=== PATIENT | female | born 1995 | race American Indian/Alaskan Native ===

== ENCOUNTER 2017-07-01 23:23 | Inpatient (IN) | payer OTHER ==
[2017-07-02] MEDS ORDERED: LACTATED RINGERS 1,000 ML ONE ×2 (00:48→02:27)
[2017-07-02 00:58] LABS: Basophils % (Auto) 2.4 % (0.0-1.8); Eosinophils % (Auto) 1.4 % (0.0-4.3); Hematocrit 31.1 % (30.3-42.9); Hemoglobin 10.3 gm/dl (10.1-14.3); Mean Corpuscular HGB Conc 33 % (30-34); Mean Corpuscular Hemoglobin 30 pg (28-32); Mean Corpuscular Volume 91 fl (79-97); Platelet Count 348 K/mm3 (140-440); Red Blood Count 3.41 M/mm3 (3.65-5.03); Red Cell Distribution Width 15.1 % (13.2-15.2); White Blood Count 12.8 K/mm3 (4.5-11.0)
[2017-07-02 01:39] LABS: HIV-1 Antigen p24 Non React (Non React); HIVR-1/2 Ab Non React (Non React)
[2017-07-02 01:43] LABS: Urine Drugs of Abuse Note Disclamer
[2017-07-02 01:56] LABS: Bilirubin,Urine NEG (Negative); Blood,Urine SM (Negative); Ketones,Urine NEG (Negative); Leukocyte Esterase,Urine LG (Negative); Mucus,Urine 1+ /HPF; Nitrite,Urine NEG (Negative)
--- NOTE | 2017-07-02 02:27 | History and Physical Report ---
History of Present Illness Date of examination: 07/02/17 Date of admission: 07/02/17 02:15 Chief complaint: My water broke History of present illness: Patient is a 22 year old who presents to L&D with no care and 2 previous c-sections, and complaint of rupture of membranes at 7pm. Per the patient she only recently found out that she was . She denies any medication use and states that she has had no known complications with this , but as previuosly stated she has had no care. Patient had ultrasound in triage which showed 2/8 bpp. Past History Past Medical History: other (psychological disorder) Past Surgical History: no surgical history Family/Genetic History: none Social history: single - Obstetrical History : 4 Medications and Allergies Allergies Allergy/AdvReac Type Severity Reaction Status Date / Time amoxicillin Allergy Unknown Unverified 10/28/15 22:16 clarithromycin [From Biaxin] Allergy Unknown Unverified 10/28/15 22:55 Home Medications Medication Instructions Recorded Confirmed Last Taken Type Docusate Sodium [Colace CAP] 100 mg PO BID #60 capsule 10/28/15 Unknown Rx Ferrous Sulfate [Feosol 325 MG tab] 325 mg PO TID #90 tablet 10/28/15 Unknown Rx Ibuprofen [Motrin 800 MG tab] 800 mg PO Q8HR PRN #90 tablet 10/28/15 Unknown Rx oxyCODONE /ACETAMINOPHEN [Percocet 1 tab PO Q6HR PRN #30 tablet 10/28/15 Unknown Rx 5/325 mg] Review of Systems All systems: negative - Vital Signs Vital signs: Vital Signs Pulse BP 77 122/59 07/02/17 00:09 07/02/17 00:09 Temp Pulse Resp BP Pulse Ox 77 122/59 07/02/17 00:09 07/02/17 00:09 - Physical Exam Breasts: Cardiovascular: Regular rate, Normal S1, Normal S2 Lungs: Positive: Clear to auscultation, Normal air movement Abdomen: Positive: normal appearance, soft, normal bowel sounds. Negative: distention, tenderness Vulva: both: normal Vagina: Positive: normal moisture. Negative: discharge Cervix: Negative: lesion, discharge Uterus: Positive: normal size, normal contour Adnexa: both: normal Anus/Rectum: Positive: normal perianal skin, heme negative. Negative: rectal mass, hemorrhoids Extremities: Deep Tendon Reflex Grade: Normal +2 - Obstetrical FHR: auscultation normal Cervical Dilatation: 1 Uterine Contraction Pattern: Regular Results Result Diagrams: 07/02/17 00:25 Abnormal lab results 07/02/17 07/02/17 Range/Units 00:21 00:25 WBC 12.8 H (4.5-11.0) K/mm3 RBC 3.41 L (3.65-5.03) M/mm3 Hopkins % (Auto) 9.5 H (0.0-7.3) % Baso % (Auto) 2.4 H (0.0-1.8) % Hopkins # 1.2 H (0.0-0.8) K/mm3 Baso # 0.3 H (0.0-0.1) K/mm3 Seg Neutrophils # 8.5 H (1.8-7.7) K/mm3 Urine WBC (Auto) 91.0 H (0.0-6.0) /HPF U Epithel Cells (Auto) 19.0 H (0-13.0) /HPF All other labs normal. Assessment and Plan IUp at 38 weeks with rom and no care. Admit for repeat .
[2017-07-02] MEDS ORDERED: BICITRA PO ONE (02:31)
[2017-07-02] MEDS ORDERED: PEPCID IV ONE (02:31)
[2017-07-02] MEDS ORDERED: REGLAN IV ONE (02:31)
[2017-07-02] MEDS ORDERED: LACTATED RINGERS 1,000 ML IV SCH (03:00)
[2017-07-02] MEDS ORDERED: CLEOCIN 600 MG/50 mL 600 MG/50 ML BAG IV NR (03:00)
[2017-07-02] MEDS ORDERED: PITOCin/NS 20 UNIT/1000ML DRIP 20 UNITS/1,000 ML BAG IV SCH ×2 (03:00→07:02)
[2017-07-02] MEDS ORDERED: MORPHINE ONE (03:35)
[2017-07-02] MEDS ORDERED: WATER FOR IRRIG STERILE IR ONE (04:15)
[2017-07-02] MEDS ORDERED: NACL 0.9% IR ONE (04:15)
[2017-07-02] MEDS ORDERED: NEO SYNEPHRINE ONE (04:16)
[2017-07-02] MEDS ORDERED: ZOFRAN ONE (04:47)
[2017-07-02] MEDS ORDERED: TORADOL ONE (05:12)
[2017-07-02] MEDS ORDERED: NARCAN 0.4 MG/1 ML IV PRN ×2 (05:33→07:02)
--- NOTE | 2017-07-02 05:33 | Anesthesia Consultation ---
Anesthesia Consult and Med Hx Date of service: 07/02/17 - Airway Anesthetic Teeth Evaluation: Good ROM Head & Neck: Adequate Mental/Hyoid Distance: Adequate Mallampati Class: Class II Intubation Access Assessment: Probably Good - Pulmonary Exam CTA: Yes - Cardiac Exam Cardiac Exam: RRR - Pre-Operative Health Status ASA Pre-Surgery Classification: ASA2 Proposed Anesthetic Plan: Spinal - Pulmonary Hx Asthma: No COPD: No Hx Pneumonia: No - Cardiovascular System Hx Hypertension: No - Central Nervous System Hx Seizures: No Hx Psychiatric Problems: No - Endocrine Hx Renal Disease: No Hx End Stage Renal Disease: No Hx Hypothyroidism: No Hx Hyperthyroidism: No - Hematic Hx Anemia: No Hx Sickle Cell Disease: No - Other Systems Hx Alcohol Use: No
[2017-07-02] MEDS ORDERED: MORPHINE IV PRN (05:34)
[2017-07-02] MEDS ORDERED: TORADOL IV PRN (05:35)
[2017-07-02] MEDS ORDERED: PERCOCET 5/325 PO PRN (05:35)
[2017-07-02] MEDS ORDERED: SODIUM CHLORIDE FLUSH SYRINGE 10 ML IV NR ×2 (06:00→07:02)
--- NOTE | 2017-07-02 06:02 | Procedure Note ---
OB Delivery Note - Delivery Date of Delivery: 07/02/17 Surgeon: BINH AUGUSTE Estimated blood loss: other (600) - Section Preop diagnosis: repeat , desires sterilization Postop diagnosis: same section procedure: repeat low transverse, bilateral tubal ligation Disposition: PACU Complications: none - A at 1 minute: 8 at 5 minutes: 9 Gender: Female
--- NOTE | 2017-07-02 06:19 | Operative Report ---
Operative Report Operative Report: The operative report for patient Marie Macedo Date of service 07/02/2017 Preoperative diagnosis: Intrauterine at 37-1/7 weeks 2. Previous 2 3. Spontaneous rupture of membranes 4. Lack of care 5. Undesired fertility Postoperative diagnosis: Same Procedure: Repeat low transverse section with bilateral tubal ligation Surgeon: Dr. Marisol Lim Anesthesia: Dr. Reyna ISIDRO EBL: 600 Urine output: [150] IV fluids: 1200 Findings: Viable female in the vertex occiput anterior position. Weight 6 lbs. 5 oz. 2854 g Apgars 9 and 9]. Otherwise normal pelvic anatomy Specimens: Portions of right and left fallopian tubes Complications: None Procedure: The patient was admitted to the OR with IV running and in place. She was properly identified as herself. Her spinal was placed without difficulty in the operating room. She was placed in the dorsal supine position with a leftward tilt. A Boss catheter was inserted. She was then prepped and draped in the normal sterile fashion. An Allis test was used to confirm adequate anesthesia. Once confirmed, the incision was made with the scalpel and carried to the underlying fascia using the scalpel and the Bovie. The fascia was incised in the midline and incision was extended bilaterally using the curved Wade scissors. The fascia was then dissected from the underlying rectus muscles in a series of sharp and blunt dissection using the Wade scissors. Muscles were in the in the midline sharply using Metzenbaum scissors and the peritoneum was entered into bluntly using the surgeon's fingers. A bladder blade was then placed into the incision to protect the bladder. Following this the bladder flap was created. Hysterotomy incision was then made in the scalpel. Upon uterine entry, the amniotic sac was ruptured for scant clear fluid. The was then delivered in the occiput [anterior] position. Her mouth and nose were suctioned on the field. The cord was clamped and cut and she was handed to the waiting NICU personnel. The uterus was then exteriorized and cleared of all clots and debris. The hysterotomy incision was then closed in a running locked fashion using 0 Vicryl. Attention was then turned to the patient's fallopian tubes. Each tube was grasped in the midportion with a Mariely clamp. A clear space in the broad ligament was visualized and incised using the Bovie. The tissues were then ligated in the Reserve style tubal ligation. There was excellent hemostasis following this portion of the procedure. The abdomen was then copiously irrigated with warm normal saline. Following this the uterus was replaced into the abdominal cavity. At this point the muscles were reapproximated in the midline using individual sutures of 0 Vicryl. Following this the fascia was closed in a running fashion using 0 Vicryl. Tissue was then copiously irrigated. Skin was closed in a running fashion using 3-0 Monocryl. The sponge lap needle and instrument counts were correct 2. The patient tolerated the procedure well. She was taken to recovery in stable condition.
[2017-07-02] MEDS ORDERED: LANSINOH TP PRN (07:02)
[2017-07-02] MEDS ORDERED: D5LR 1,000 ML IV SCH (07:02)
[2017-07-02] MEDS ORDERED: TUCKS PAD TP PRN (07:02)
[2017-07-02] MEDS ORDERED: PRENATAL VITAMIN PO SCH (10:00)
--- NOTE | 2017-07-02 10:29 | Ultrasound Report ---
ULTRASOUND BIOPHYSICAL PROFILE: History: No care Technique: Transabdominal ultrasound with Doppler interrogation. 0 - breathing movements 0 - movements 0 - posture and tone 2 - Qualitative amniotic fluid volume 2 - TOTAL SCORE OF POSSIBLE 8 Heart Rate (bpm) 121
--- NOTE | 2017-07-02 10:32 | Ultrasound Report ---
OB ULTRASOUND History: No care. well being. Technique: Transabdominal ultrasound with Doppler interrogation. Gestation: Single Position: Cephalic Amniotic Fluid: Normal SAMIR = 9.8 cm Placenta: Anterior Placental Grade: 1 Heart Rate: 122 BPM Cervical length: 3.0 cm (Normal > 3 cm) BPD: 8.9 cm = 35 w 6 d HC: 32.0 cm = 36 w 0 d AC: 32.1 cm = 36 w 0 d FL: 7.1 cm = 36 w 2 d HC/AC Ratio: 0.99 Estimated Weight: 2833 grams LMP: Uncertain Clinical age = w d EDC: US Gest. Age = 36 w 0 d EDC: 07/30/17 Impression: No acute abnormality appreciated.
[2017-07-02] MEDS ORDERED: PITOCin/NS 20 UNIT/1000ML DRIP IV ONE (15:00)
[2017-07-02 19:01] LABS: Hematocrit 26.8 % (30.3-42.9); Hemoglobin 8.9 gm/dl (10.1-14.3)
[2017-07-03 08:15] VITALS: BP 108/64
--- NOTE | 2017-07-03 17:08 | Progress Note ---
Assessment and Plan Patient not in room to be seen. Per nursing staff, patient wants to go home. Will consider discharge on tomorrow if patient doing well. Subjective - Subjective Date of service: 07/03/17 Interval history: Went in to see patient and was told by a family member that she went for a walk. Patient reports: pain well controlled, ambulating normally : in NICU Objective - Vital Signs Latest vital signs: Vital Signs Temp Pulse Resp BP BP Pulse Ox 07/03/17 08:11 98.8 F 81 20 108/64 99 07/03/17 00:00 98.0 F 84 20 116/64 07/02/17 20:15 98.2 F 68 20 118/58 Intake and Output 07/03/17 07/03/17 07/03/17 06:59 14:59 22:59 Intake Total 240 Balance 240 Intake: Oral 240 Other: Total, Intake Amount 240 # Voids Void 1 - Labs Labs: Abnormal lab results 07/02/17 Range/Units 18:43 Hgb 8.9 L (10.1-14.3) gm/dl Hct 26.8 L (30.3-42.9) %
--- NOTE | 2017-07-03 17:20 | Discharge Summary ---
Providers - Providers Date of Admission: 07/02/17 02:15 Date of discharge: 07/04/17 Attending physician: BINH AUGUSTE 07/02/17 08:22 Consult to Case Management [CONS] Routine Services Needed at Discharge: Other Notified:: Aditi Phone number called:: [phone] Was contact made?: Yes If yes, spoke with:: Aditi Time called:: 08:23 Additional Physician Instructions: Pt's urine + for cocaine. Primary care physician: BINH AUGUSTE Hospitalization Reason for admission: rupture of membranes Delivery: Procedure: bilateral tubal ligation, repeat low transverse Discharge diagnosis: IUP at term delivered Hospital course: Received call from nursing staff that patient did not come back from her "walk" . Per the patient's family "she does this" and has walked off before. Patient was in hospital gown with iv heplock still in place. Incident report filed and nursing supervisor tile and mottle notified. Disposition: LEFT AGAINST MED ADVICE Plan - Discharge Medications Prescriptions: Docusate Sodium [Colace] 100 mg PO BID PRN #60 capsule PRN Reason: Constipation Ferrous Sulfate [Feosol 325 MG tab] 325 mg PO BID #60 tablet Ibuprofen 800 mg PO Q6H #40 tablet Oxycodone HCl/Acetaminophen [Percocet 7.5/325 mg] 1 each PO Q6HR PRN #40 tablet PRN Reason: Pain - Provider Discharge Summary Additional instructions: [] Smoking cessation referral if applicable(refer to patient education folder for contact #) [] Refer to [facility] Booklet Call your doctor immediately for: * Fever > 100.5 * Heavy vaginal bleeding ( >1 pad per hour) * Severe persistent headache * Shortness of breath * Reddened, hot, painful area to leg or breast * Drainage or odor from incision. * Keep incision clean and dry at all times and follow doctor's instructions regarding bathing/showering - Follow up plan Follow up: BINH AUGUSTE MD [Primary Care Provider] - 7 Days
== END 2017-07-03 18:15 | disposition left against medical advice (07) | DRG 766 ==
LOC: TRG 23:23 → APU 07-02 02:15 → OB 07-02 07:00
PROVIDERS: ADMIT Obstetrics & Gynecology; ATTEND Obstetrics & Gynecology
PROC: 10D00Z1 Extraction of Products of Conception, Low, Open Approach (ICD-10-PCS; principal; 2017-07-02)
PROC: 0UT70ZZ Resection of Bilateral Fallopian Tubes, Open Approach (ICD-10-PCS; 2017-07-02)
PROC: 30233S1 Transfusion of Nonautologous Globulin into Peripheral Vein, Percutaneous Approach (ICD-10-PCS; 2017-07-02)
DX: O34.211 Maternal care for low transverse scar from previous cesarean delivery (principal); Z88.0 Allergy status to penicillin; Z37.0 Single live birth; Z3A.37 37 weeks gestation of pregnancy
CPT/HCPCS: 36415; 76816; 76819; 80307; 81001; 85014; 85018; 85025; 85461; 85660; 86592; 86706; 86762; 86803; 86850; 86900; 86901; 87806; 88302; 88307; J1885; J2270; J2370; J2405; J2590; J2765; J2790; J7120; J7121